=== PATIENT | male | born 1960 ===

== ENCOUNTER 2024-04-10 12:05 | Outpatient (CLI) | payer OTHER ==
[2024-04-11] MEDS ORDERED: ALLEGRA ALLERG180 MG PO (09:56)
[2024-04-11] MEDS ORDERED: FARXIGA5 MG PO (09:56)
[2024-04-11] MEDS ORDERED: PROTONIX40 MG PO (09:57)
[2024-04-11] MEDS ORDERED: LIPITOR40 MG PO (09:57)
[2024-04-11] MEDS ORDERED: NORVASC5 MG PO (09:57)
[2024-04-11] MEDS ORDERED: GLUMETZA500 MG PO (09:57)
[2024-04-11] MEDS ORDERED: HYDROCHLOROTHIA25 MG PO (09:58)
== END 2024-04-10 12:09 | disposition home or self-care (01) ==
LOC: RAD 12:05
PROVIDERS: ATTEND Colon & Rectal Surgery
DX: C19 Malignant neoplasm of rectosigmoid junction (principal); Z85.038 Personal history of other malignant neoplasm of large intestine

== ENCOUNTER 2024-04-11 08:00 | Inpatient (IN) | payer OTHER ==
[~2024-04-11] VITALS: Ht 180.3 cm; Wt 82.6 kg
[2024-04-11] MEDS ORDERED: ALLEGRA ALLERG180 MG PO (09:56)
[2024-04-11] MEDS ORDERED: FARXIGA5 MG PO (09:56)
[2024-04-11] MEDS ORDERED: GLUMETZA500 MG PO (09:57)
[2024-04-11] MEDS ORDERED: NORVASC5 MG PO (09:57)
[2024-04-11] MEDS ORDERED: LIPITOR40 MG PO (09:57)
[2024-04-11] MEDS ORDERED: PROTONIX40 MG PO (09:57)
[2024-04-11] MEDS ORDERED: HYDROCHLOROTHIA25 MG PO (09:58)
[2024-04-17] MEDS ORDERED: BUPIVACAINE HCL/Mpf 0.5% 10ML VIAL ONE (11:23)
[2024-04-17] MEDS ORDERED: LIDOCAINE HCL 1%/EPINEPHRINE 20ML VIAL IJ ONE (11:23)
[2024-04-17] MEDS ORDERED: METRONIDAZOLE/SODIUM CHLORIDE 500 MG/100 ML PIGGYBACK IV ONE (11:24)
[2024-04-17] MEDS ORDERED: CEFTRIAXONE SODIUM 2,000 MG VIAL ONE (11:24)
[2024-04-17] MEDS ORDERED: SUGAMMADEX SODIUM 200 MG/2 ML VIAL IV ONE ×2 (14:00→14:18)
[2024-04-17] MEDS ORDERED: ONDANSETRON HCL 2 MG/ML VIAL IV PRN (14:15)
[2024-04-17] MEDS ORDERED: OxyCODONE HCL 5 MG TABLET (ROXICODONE) PO PRN (14:15)
[2024-04-17] MEDS ORDERED: MORPHINE SULFATE 4 MG/ML CARTRIDGE IV PRN (14:15)
[2024-04-17] MEDS ORDERED: RINGERS SOLUTION,LACTATED 1,000 ML IV SCH (14:15)
[2024-04-17] MEDS ORDERED: MORPHINE SULFATE 4 MG/ML VIAL IV ONE ×2 (16:15→16:45)
[2024-04-17] MEDS ORDERED: METOCLOPRAMIDE HCL 5 MG/ML VIAL IV SCH (17:00)
[2024-04-17] MEDS ORDERED: HYOSCYAMINE SULFATE 0.125 MG TAB.SUBL SL SCH (17:00)
[2024-04-17] MEDS ORDERED: SOD FERRIC GLUC COMPLX/SUCROSE 62.5 MG in 0.9 % SODIUM CHLORIDE 50 ML IV SCH (17:00)
[2024-04-17] MEDS ORDERED: CELECOXIB 200 MG CAPSULE PO SCH (17:00)
[2024-04-17] MEDS ORDERED: ENALAPRILAT DIHYDRATE 1.25 MG/ML VIAL IV PRN (17:00)
[2024-04-17] MEDS ORDERED: INSULIN LISPRO 1,000 UNIT/10 ML UNITS SUBCUTANEO PRN (17:00)
[2024-04-17] MEDS ORDERED: SIMETHICONE 125 MG CAPSULE PO SCH (17:00)
[2024-04-17] MEDS ORDERED: POLYETHYLENE GLYCOL 3350 17 GM BLIST.PACK PO SCH (17:00)
[2024-04-17] MEDS ORDERED: DEXTROSE 50 % IN WATER 0.5 G/ML DISP.SYRIN IV PRN (17:00)
[2024-04-17] MEDS ORDERED: GABAPENTIN 300 MG CAPSULE PO SCH (17:00)
[2024-04-17 17:16] LABS: HEMATOCRIT 33.1 % (39.0-48.0); HEMOGLOBIN 9.7 g/dL (13-16.00); MEAN CORPUSCULAR HEMOGLOBIN 20.1 pg (27.00-32.0); MEAN CORPUSCULAR HGB CONC 29.5 g/dl (32.0-36.0); PLATELET COUNT 372 K/uL (150-450); RED BLOOD COUNT 4.86 M/uL (4.00-6.00); RED CELL DISTRIBUTION WIDTH 21.2 % (11.5-14.5)
[2024-04-17] MEDS ORDERED: ACETAMINOPHEN 500 MG GEL..CAP PO SCH (20:00)
[2024-04-17] MEDS ORDERED: FAMOTIDINE/PF 20 MG/2 ML VIAL IV PUSH SCH (21:00)
[2024-04-18 00:04] VITALS: BP 123/72; O2SAT 95
[2024-04-18 08:08] LABS: HEMATOCRIT 29.2 % (39.0-48.0); PLATELET COUNT 292 K/uL (150-450); RED BLOOD COUNT 4.31 M/uL (4.00-6.00); RED CELL DISTRIBUTION WIDTH 21.5 % (11.5-14.5)
[2024-04-18 08:14] LABS: HEMOGLOBIN 8.8 g/dL (13-16.00); MEAN CELL VOLUME 67.8 fL (80.0-100.00); MEAN CORPUSCULAR HEMOGLOBIN 20.4 pg (27.00-32.0)
[2024-04-18] MEDS ORDERED: HYDROCHLOROTHIAZIDE 25 MG TABLET PO SCH (09:00)
[2024-04-18] MEDS ORDERED: Cyanocobalamin/Mecobalamin 1 TAB.SL SL SCH (09:00)
[2024-04-18] MEDS ORDERED: LACTOBACILLUS ACIDOPHILUS 1 CAP CAP PO SCH (09:00)
[2024-04-18] MEDS ORDERED: LACTULOSE 20 G/30 ML BLIST.PACK PO SCH (09:00)
[2024-04-18] MEDS ORDERED: AMLODIPINE BESYLATE 5 MG TABLET PO SCH (09:00)
[2024-04-18 09:10] LABS: ALBUMIN 2.9 gm/dL (3.4-5.0); CALCIUM 7.8 mg/dL (8.5-10.1); CREATININE SERUM 0.75 mg/dL (0.70-1.30); GFR 104.52; POTASSIUM 3.01 mEq/L (3.5-5.1)
[2024-04-18 09:45] LABS: MAGNESIUM 1.3 mg/dL (1.8-2.4)
[2024-04-18 10:00] VITALS: BP 124/66; O2SAT 95
[2024-04-18] MEDS ORDERED: MAGNESIUM SULFATE IN WATER 50 ML IV NR (11:06)
[2024-04-18] MEDS ORDERED: POTASSIUM CHLORIDE 20MEQ/100ML H2O PB IV NR (12:45)
[2024-04-18 16:00] VITALS: BP 127/79; O2SAT 97
[2024-04-18] MEDS ORDERED: ATORVASTATIN CALCIUM 40 MG TABLET PO SCH (17:00)
[2024-04-18] MEDS ORDERED: ENOXAPARIN SODIUM 40 MG/0.4 ML SYRINGE SUBCUTANEO SCH (17:00)
[2024-04-19 00:13] VITALS: BP 104/67; O2SAT 95
[2024-04-19 08:00] VITALS: BP 124/77; O2SAT 94
[2024-04-19] MEDS ORDERED: ENOXAPARIN SODIUM 40 MG/0.4 ML SYRINGE SUBCUTANEO SCH (09:00)
== END 2024-04-19 11:11 | disposition home or self-care (01) | DRG 330 ==
LOC: O/R 04-17 05:25 → SURG 04-17 05:25
PROVIDERS: ADMIT Colon & Rectal Surgery; ATTEND Colon & Rectal Surgery
PROC: 0DBP4ZZ Excision of Rectum, Percutaneous Endoscopic Approach (ICD-10-PCS; 2024-04-17)
PROC: 07BB4ZZ Excision of Mesenteric Lymphatic, Percutaneous Endoscopic Approach (ICD-10-PCS; 2024-04-17)
PROC: 0DQL4ZZ Repair Transverse Colon, Percutaneous Endoscopic Approach (ICD-10-PCS; 2024-04-17)
PROC: 0DJD8ZZ Inspection of Lower Intestinal Tract, Via Natural or Artificial Opening Endoscopic (ICD-10-PCS; 2024-04-17)
PROC: 0DBM4ZZ Excision of Descending Colon, Percutaneous Endoscopic Approach (ICD-10-PCS; 2024-04-17)
PROC: 0DTN4ZZ Resection of Sigmoid Colon, Percutaneous Endoscopic Approach (ICD-10-PCS; principal; 2024-04-17 17:30)
DX: C18.6 Malignant neoplasm of descending colon (principal); C19 Malignant neoplasm of rectosigmoid junction; K91.72 Accidental puncture and laceration of a digestive system organ or structure during other procedure; D12.4 Benign neoplasm of descending colon; R59.0 Localized enlarged lymph nodes; D64.89 Other specified anemias